=== PATIENT | male | born 1975 | race Caucasian/White ===

== ENCOUNTER 2023-12-07 06:32 | Day surgery (SDC) | payer OTHER ==
[~2023-12-07] VITALS: Ht 182.9 cm; Wt 131.5 kg
[2023-12-07] MEDS ORDERED: SIMETHICONE 40 MG/0.6 ML ML ONE (07:37)
[2023-12-07] MEDS ORDERED: MEPERIDINE 100 MG INJ. 100 MG/ML VIAL ONE (07:37)
[2023-12-07] MEDS ORDERED: MIDAZOLAM HCL 5 MG/5 ML VIAL ONE ×2 (07:37→10:50)
[2023-12-07 14:20] VITALS: BP_SYST 138; PULSE 80; RESP 16; TEMP 97.7; O2SAT 95
== END 2023-12-07 09:56 | disposition home or self-care (01) ==
LOC: SDS 06:32 → SMU 06:35 → SDS 09:56
PROVIDERS: ATTEND Student in an Organized Health Care Education/Training Program
DX: Z12.11 Encounter for screening for malignant neoplasm of colon (principal); D12.2 Benign neoplasm of ascending colon; K63.89 Other specified diseases of intestine; K64.8 Other hemorrhoids; K64.4 Residual hemorrhoidal skin tags; I10 Essential (primary) hypertension; E11.9 Type 2 diabetes mellitus without complications; Z79.84 Long term (current) use of oral hypoglycemic drugs; Z79.899 Other long term (current) drug therapy
CPT/HCPCS: 45380; 45385; 82948; 88305; 99152; 99153; G0378; J2250; J2175